=== PATIENT | female | born 1960 | race African-American/Black ===

== ENCOUNTER 2020-12-26 15:02 | Emergency (ER) | payer BC, SELFPAY ==
--- NOTE | ~2020-12-26 | XR_ITS ---
EXAMINATION: XR chest 2V DATE: 12/26/2020 15:41 INDICATION: Midsternal chest pain TECHNIQUE: PA and lateral views of the chest are obtained. COMPARISON: 04/05/2016 FINDINGS: The lungs are free of acute opacities. There is no pleural effusion or pneumothorax. The ca rdiomediastinal silhouette is normal. There is moderate thoracic spondylosis. There is chronic mild e levation of the right hemidiaphragm. IMPRESSION: 1. No acute cardiopulmonary abnormality. Reviewed, dictated and finalized at location A.
--- NOTE | 2020-12-26 15:03 | ECG_ITS ---
Measurements Intervals Talent Rate: 72 P: 122 KS: 147 QRS: 141 QRSD: 79 T: 155 QT: 362 QTc: 398 Interpretive Statements SINUS RHYTHM ARM LEADS REVERSED ATYPICAL ECG Electronically Signed On 12-27-2020 9:00:07 CDT by Waldo Gonzalez D.O.
[2020-12-26 15:28] VITALS: BP 128/89; PULSE 81; RESP 14; TEMP 36.8; O2SAT 99
[2020-12-26 15:31] LABS: Basophils Absolute Auto 0.1 K/mm3 (0.0-0.1); Basophils Percent Auto 0.8 % (0.2-1.2); Eosinophils Absolute Auto 0.1 K/mm3 (0-0.3); Eosinophils Percent Auto 1.4 % (0-4.4); Hematocrit 44.2 % (37.0-47.0); Hemoglobin 14.4 g/dL (12.0-15.0); Immature Granulocyte Absolute 0.02 K/mm3 (0.00-0.031); Immature Granulocyte Percent A 0.3 % (0-0.5); Lymphocytes Absolute Auto 1.42 K/mm3 (0.9-3.2); Mean Corpuscular HGB Conc 32.6 g/dl (32-36); Mean Corpuscular Hemoglobin 28.6 pg (26-34); Mean Corpuscular Volume 87.7 fl (80-100); Mean Platelet Volume 9.7 fl (7.4-10.4); Monocytes Absolute Auto 0.5 K/mm3 (0.1-0.6); Monocytes Percent Auto 7.1 % (2.6-8.5); Neutrophils Absolute Auto 4.4 K/mm3 (1.3-6.7); Neutrophils Percent Auto 68.4 % (45.5-73.1); Platelet Count Result 307 k/mm3 (150-375); Red Blood Count 5.04 M/mm3 (4.2-5.4); White Blood Count 6.5 K/mm3 (4.5-10.0)
[2020-12-26 15:40] LABS: Anion Gap 8 mmol/L (8-16); Blood Urea Nitrogen 19 mg/dL (7-17); Calcium 9.4 mg/dL (8.4-10.2); Carbon Dioxide 26 mmol/L (22-30); Chloride 105 mmol/L (98-107); Estimated CRCL calculation 56 ml/min; Estimated Glomerular Filt Rate > 60; Glucose 95 mg/dL (65-110); Potassium 4.1 mmol/L (3.4-5.0); Sodium 139 mmol/L (137-145)
[2020-12-26 15:42] LABS: Prothrombin Time 12.8 Seconds (11.1-14.7)
[2020-12-26 15:43] LABS: Partial Thromboplastin Time 23.7 SECONDS (22.3-36.8)
[2020-12-26 15:51] LABS: Troponin I < 0.012 ng/mL (0.000-0.034)
[2020-12-26 17:52] VITALS: BP 155/90; PULSE 76; RESP 16; TEMP 36.6; O2SAT 100
[2020-12-26 18:01] VITALS: PULSE 66
[2020-12-26] MEDS: ASPIRIN 81 MG CHEWABLE TABLET 324 MG PO (18:02)
[2020-12-26] MEDS: KETOROLAC 30 MG/ML VIAL (*BKC) IV PUSH (18:03)
--- NOTE | 2020-12-26 18:20 | ED.CHESTPAIN ---
HPI - Chest Pain General Chief Complaint: Chest Pain Stated Complaint: CHEST PAIN, SOB Time Seen by Provider: 12/26/20 17:50 History of Present Illness HPI narrative: Patient is a 60-year-old female who presents ER with right-sided chest pain. See anterior aspect. Ongoing over the last day. Worse with movement and deep breaths. Makes her feel slightly short of breath. No fevers or chills or sweats. No trauma. Has not tried any oral pain medication. No history of [place]. No lower extremity swelling, cough, hemoptysis. Related Data Allergies Allergy/AdvReac Type Severity Reaction Status Date / Time erythromycin base Allergy Severe YEAST Verified 12/26/20 17:59 INFECTION latex Allergy Severe SWELLING, Verified 12/26/20 17:59 REDDNESS tetracycline Allergy Severe YEAST Verified 12/26/20 17:59 INFECTION Review of Systems Review of Systems: All systems reviewed & are unremarkable except as noted in HPI and below Constitutional: Constitutional: Denies chills, Denies fever(s) and Denies weakness ENT: Denies nasal congestion and Denies sore throat Cardiovascular: Cardiovascular: Reports chest pain, Denies rapid heart rate and Denies radiating jaw, neck or arm pain Respiratory: Respiratory: Denies cough, Reports dyspnea and Denies wheezing Gastrointestinal: Gastrointestinal: Denies abdominal pain, Denies nausea and Denies vomiting Musculoskeletal: Musculoskeletal: Denies joint swelling and Denies muscle cramps PMFSH Past Medical History Medical History (Updated 12/26/20 @ 19:37 by Levi Kazt MD) Depression Surgical History Surgical History (Updated 12/26/20 @ 19:34 by Levi Katz MD) History of colonoscopy Social History Social History (Updated 12/26/20 @ 19:34 by Levi Katz MD) Smoking status: Never smoker Gender identity (if verbalized by the patient): Female Exam Narrative: GENERAL: Well-appearing, well-nourished, and in no acute distress. HEAD: Normocephalic, atraumatic. CHEST: Clear to auscultation. No respiratory distress. Tender palpation right anterior chest wall. HEART: Regular rate and rhythm. Normal peripheral pulses. ABDOMEN: Soft, nontender, nondistended. EXTREMITIES: Normal range of motion. No edema. SKIN: Warm, dry, no rash. NEURO: Alert and oriented x3. PSYCH: Normal mood and affect. Course Course Emergency Course: Unremarkable work-up. Discharge home. Vital Signs Vital signs: Vital Signs Temperature 98.3 F 12/26/20 15:28 Pulse Rate 81 12/26/20 15:28 Respiratory Rate 14 12/26/20 15:28 Blood Pressure 128/89 12/26/20 15:28 Pulse Oximetry 99 12/26/20 15:28 Temperature 98 F 12/26/20 17:52 Pulse Rate 63 12/26/20 19:03 Respiratory Rate 16 12/26/20 19:03 Blood Pressure 121/78 12/26/20 19:03 Pulse Oximetry 100 12/26/20 19:03 MDM - Chest Pain Lab Data Result diagrams: 12/26/20 15:18 12/26/20 15:17 Labs: Lab Results 12/26/20 12/26/20 12/26/20 Range/Units 15:17 15:17 15:18 WBC 6.5 (4.5-10.0) K/mm3 RBC 5.04 (4.2-5.4) M/mm3 Hgb 14.4 (12.0-15.0) g/dL Hct 44.2 (37.0-47.0) % MCV 87.7 (80-100) fl MCH 28.6 (26-34) pg MCHC 32.6 (32-36) g/dl RDW 14.0 (11.5-14.5) % Plt Count 307 (150-375) k/mm3 MPV 9.7 (7.4-10.4) fl Immature Gran % (Auto) 0.3 (0-0.5) % Neut % (Auto) 68.4 (45.5-73.1) % Lymph % (Auto) 22.0 (18.3-44.2) % [place] % (Auto) 7.1 (2.6-8.5) % Eos % (Auto) 1.4 (0-4.4) % Baso % (Auto) 0.8 (0.2-1.2) % Lymph # (Auto) 1.42 (0.9-3.2) K/mm3 [place] # (Auto) 0.5 (0.1-0.6) K/mm3 Eos # (Auto) 0.1 (0-0.3) K/mm3 Baso # (Auto) 0.1 (0.0-0.1) K/mm3 Abs Immat Gran (auto) 0.02 (0.00-0.031) K/mm3 Absolute Neuts (auto) 4.4 (1.3-6.7) K/mm3 Absolute Nucleated RBC 0.0 (0.0-0.012) K/mm3 Nucleated RBC % 0.0 (0.0-0.2) % PT 12.8 (11.1-14.7) Seconds INR 1.0 APTT 23.7
[2020-12-26 18:28] LABS: Troponin I < 0.012 ng/mL (0.000-0.034)
[2020-12-26 18:29] LABS: D Dimer 0.27 ug/mL (<0.48)
[2020-12-26 19:03] VITALS: BP 121/78; PULSE 63; RESP 16; O2SAT 100
== END 2020-12-26 19:46 | disposition home or self-care (01) ==
PROVIDERS: Emergency Provider Emergency Medicine; PCP Family Medicine
DX: R07.89 Other chest pain (principal)
CPT/HCPCS: 36415; 71046; 80048; 84484; 85025; 85380; 85610; 85730; 93005; 96374; 99284; A9270; J1885

== ENCOUNTER 2025-05-17 22:23 | Emergency (ER) | payer SELFPAY ==
--- NOTE | ~2025-05-17 | XR_ITS ---
XR toe 3rd RT min 2V 05/17/2025 23:12 Indication: Right third toe deformity Procedure: 3 views right third toe Comparison: No prior studies for comparison. Findings: There is a mildly displaced extra-articular fracture right third proximal phalanx. Mild soft tissue swelling. No other fracture identified. No foreign body. Impression: 1: Mildly displaced extra-articular fracture right third proximal phalanx. Reviewed, dictated and finalized at location [facility]. [employer] Impression: 1: Mildly displaced extra-articular fracture right third proximal phalanx.
--- OUTSIDE RECORDS SUMMARY | 2025-05-17 22:25 | XMS_ITS | Clinical Summary ---
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 Gender Identity Not on file Sexual Orientation Not on file Plan of Treatment Health Maintenance Due Date Last Done Comments Hepatitis C Virus (HCV) Screening 1960 Pap Smear 1981 Cervical Cancer Screening (CCS) 1990 HPV/Cotest 1990 Cologuard 2005 Colonoscopy 2005 Colorectal Cancer Screening 2005 Immunochemical Fecal Occult Blood 2005 Pneumococcal Immunization (50+ years) (1 of 1 - PCV) 2010 Zoster Immunization (1 of 2) 2010 Influenza Immunization (#1) 01/25/20250 09/2019, 02/25/2019, 06/11/2018, Additional history exists SARS-COV-2 Immunization ( season) 2025 Respiratory Syncytial Virus (RSV) Immunization (Adult) (1 - 1-dose 75+ series) 11/11/2035 DTaP/Tdap/Td Immunization Discontinued 04/05/2016, TdaP Immunization Completed 04/05/2016 Hepatitis B Immunization Aged Out No longer eligible based on patient's age to complete this topic Human Papillomavirus (HPV) Immunization Aged Out No longer eligible based on patient's age to complete this topic Meningococcal Immunization (ACWY) Aged Out No longer eligible based on patient's age to complete this topic Rotavirus Immunization Aged Out No lo nger eligible based on patient's age to complete this topic
--- OUTSIDE RECORDS SUMMARY | 2025-05-17 22:25 | XMS_ITS | Continuity of Care Document ---
Author Organization [place] - [facility] Address [address] [place] [address] Care Team Providers [facility] Name Role Phone JOSE JUAN ZEPEDA Primary Care Provider [phone] Assessment No assessment recorded. Plan of Treatment Reminders Order Date Submit Date Provider Last Modified By Organization Details Last Modified Time Details Appointments Physical/ Annual Wellness 2025 10:45A M Jose Juan Zepeda MD Not available Not available Not available Lab None recorded. Referral None recorded. Procedures None recorded. Surgeries None recorded. Imaging None recorded. Medication Orders atorvasta tin 10 mg tablet 2024 025 [id number], 2 [facility], [place], [place], [id number], 02/23/2025 09:23:29 Patient TargetsNo targets recorded. Patient InstructionsNo instructions recorded. Reason for Referral None Reported. Results Created Date Observation Date Name Description Value Unit Range Abnormal Flag Note LastModifiedBy Organization Detail LastModifiedTime 02/18/2002/19/2025 LIPID PANEL , STAND GABI cholesterol, total 166 mg/dL <200 normal Not Available [facility] [address] [place], [address], 02/19/2025 11:39:50 02/18/2002/19/2025 LIPID PANEL , STAND GABI HDL cholesterol 57 mg/dL > or = 50 normal Not Available [facility] [address] [place], [address], 02/19/2025 11:39:50 02/18/2002/19/2025 LIPID PANEL , STAND GABI triglyceride s 82 mg/dL <150 normal Not Available [facility] [address] [place] [address], [address], 02/19/2025 11:39:50 02/18/2002/19/2025 LIPID PANEL , STAND GABI LDL-choleste rol 92 mg/dL _(morales c) normal Refer ence range : <100 Franck able range <100 mg/dL for prima ry preve ntion ; <70 mg/dL for patie nts with CHD or diabe tic patie nts with > or = 2 CHD risk facto rs. LDL-C is now calcu lated using the Edwina n-Hop kins calcu eliseo n, which is a valid ated novel metho d provi ding emil r accur acy than the Fried kaylan equat ion in the estim ation of LDL-C . Edwina michel SS et al. JULIANA. 2013; 310(1 9): 2061- 2068 (http ://ed ucati on.Qu estCaarbon. com/f aq/FA Q164) Not Available [facility] [address] [place] [address], [address], 02/19/2025 11:39:50 02/18/2002/19/2025 LIPID PANEL , STAND GABI chol/HDLC ratio 2.9 (calc ) <5.0 normal Not Available [facility] [address] [place] [address], [address], 02/19/2025 11:39:50 02/18/2002/19/2025 LIPID PANEL , STAND GABI non HDL cholesterol 109 mg/dL _(morales c) <130 normal For patie nts with diabe adam plus 1 major ASCVD risk facto r, treat ing to a non-H DL-C goal of <100 mg/dL (LDL- C of <70 mg/dL ) is consi dered a thera peuti c optio n. Not Available [facility] [address] [place] [address], [address], 02/19/2025 11:39:50 02/18/2002/19/2025 CBC (INCL UDES DIFF/ PLT) white blood cell count 3.5 thous and/u L 3.8-10 .8 low Not Available [address], [address], 02/19/2025 11:39:51 02/18/2002/19/2025 CBC (INCL UDES DIFF/ PLT) red blood cell count 4.82 bryan on/uL 3.80-5 .10 normal Not Available [address], [address], 02/19/2025 11:39:51 02/18/2002/19/2025 CBC (INCL UDES DIFF/ PLT) hemoglobin 13.9 g/dL 11.7-1 5.5 normal Not Available [address], [address], 02/19/2025 11:39:51 02/18/2002/19/2025 CBC (INCL UDES DIFF/ PLT) hematocrit 42.6 % 35.0-4 5.0 normal Not Available [address], [address], 02/19/2025 11:39:51 02/18/2002/19/2025 CBC (INCL UDES DIFF/ PLT) MCV 88.4 fL 80.0-1 00.0 normal Not Available [address], [address], 02/19/2025 11:39:51 02/18/2002/19/2025 CBC (INCL UDES DIFF/ PLT) MCH 28.8 pg 27.0-3 3.0 normal Not Available [address], [address], 02/19/2025 11:39:51 02/18/2002/19/2025 CBC (INCL UDES DIFF/ PLT) MCHC 32.6 g/dL 32.0-3 6.0 normal For adult s, a sligh t decre ase in the calcu lated MCHC value (in the range of 30 to 32 g/dL) is most likel y not clini peri signi fican t; danikaev er, it shoul d be inter prete d with cauti on in corre lat n with other red cell jean eters and the patie nt's clini morales condi tion. Not Available [address], [address], 02/19/2025 11:39:51 02/18/2002/19/2025 CBC (INCL UDES DIFF/ PLT) RDW 13.0 % 11.0-1 5.0 normal Not Available [address], [address], 02/19/2025 11:39:51 02/18/2002/19/2025 CBC (INCL UDES DIFF/ PLT) platelet count 239 thous and/u L 140-40 0 normal Not Available [address], [address], 02/19/2025 11:39:51 02/18/2002/19/2025 CBC (INCL UDES DIFF/ PLT) MPV 10.5 fL 7.5-12 .5 normal Not Available [address], [address], 02/19/2025 11:39:51 02/18/2002/19/2025 CBC (INCL UDES DIFF/ PLT) absolute neutrophils 1579 cells /uL 1500-7 800 normal Not Available [address], [address], 02/19/2025 11:39:51 02/18/2002/19/2025 CBC (INCL UDES DIFF/ PLT) absolute lymphocytes 1323 cells /uL 850-39 00 normal Not Available [address], [address], 02/19/2025 11:39:51 02/18/2002/19/2025 CBC (INCL UDES DIFF/ PLT) absolute monocytes 431 cells /uL 200-95 0 normal Not Available [address], [address], 02/19/2025 11:39:51 02/18/2002/19/2025 CBC (INCL UDES DIFF/ PLT) absolute eosinophils 130 cells /uL 15-500 normal Not Available [address], [address], 02/19/2025 11:39:51 02/18/2002/19/2025 CBC (INCL UDES DIFF/ PLT) absolute basophils 39 cells /uL 0-200 normal Not Available [address], [address], 02/19/2025 11:39:51 02/18/2002/19/2025 CBC (INCL UDES DIFF/ PLT) neutrophils 45.1 % normal Not Available [address], [address], 02/19/2025 11:39:51 02/18/2002/19/2025 CBC (INCL UDES DIFF/ PLT) lymphocytes 37.8 % normal Not Available [address], [address], 02/19/2025 11:39:51 02/18/2002/19/2025 CBC (INCL UDES DIFF/ PLT) monocytes 12.3 % normal Not Available [address], [address], 02/19/2025 11:39:51 02/18/2002/19/2025 CBC (INCL UDES DIFF/ PLT) eosinophils 3.7 % normal Not Available [address], [address], 02/19/2025 11:39:51 02/18/2002/19/2025 CBC (INCL UDES DIFF/ PLT) basophils 1.1 % normal Not Available [address], [address], 02/19/2025 11:39:51 02/18/2002/19/2025 QUANT IFERO N(R)- TB GOLD PLUS, 1 TUBE quantiferon( R)-TB gold plus, 1 tube NEGATI VE negati ve normal Negat gisselle test resul t. M. justina michaudos is compl ex infec tion unlik brian. Not Available [address], [address], 02/19/2025 11:39:52 02/18/2002/19/2025 QUANT IFERO N(R)- TB GOLD PLUS, 1 TUBE nil 0.02 IU/mL normal Not Available [address], [address], 02/19/2025 11:39:52 02/18/2002/19/2025 QUANT IFERO N(R)- TB GOLD PLUS, 1 TUBE mitogen-nil 9.38 IU/mL normal Not Available [address], [address], 02/19/2025 11:39:52 02/18/20 25 02/19/2025 QUANT IFERO N(R)- TB GOLD PLUS, 1 TUBE TB1-nil 0.00 IU/mL normal Not Available [address], [address], 02/19/2025 11:39:52 02/18/20 25 02/19/2025 QUANT IFERO N(R)- TB GOLD PLUS, 1 TUBE TB2-nil <0.00 IU/mL normal The Nil tube value refle cts the backg round inter feron gamma immun e respo nse of the patie nt's blood sampl e. This value has been subtr acted from the patie nt's displ ayed TB and Mitog en resul ts. Lower than expec lor resul ts with the Mitog en tube preve nt false -nega tive Quant ifero n readi ngs by detec ting a patie nt with a poten tial immun e suppr essiv e condi tion and/o r subop timal pre-a nalyt ical speci men handl ing. The TB1 Antig en tube is coate d with the M. tuber culos is-sp ecifi c antig ens desig allison to elici t respo nses from TB antig en prime d CD4+ helpe r T-lym phocy adam. The TB2 Antig en tube is coate d with the M. tuber culos is-sp ecifi c antig ens desig allison to elici t respo nses from TB antig en prime d CD4+ helpe r and CD8+ cytot oxic T-lym phocy adam. For addit ional infor susan dubose e refer to https ://ed ati on.qu nena [employer]RS [employer]/f aq/FA Q204 (This link is being provi ded for infor bee castrejon/ brooke arzate l purpo ses only. ) Not Available [employer] [address] [place], [address], 02/19/2025 11:39:52 Result Notes None recorded. Problems Name Problem SNOMED Code Status Onset Date Resolution Date Notes Provider Name and Address Organization Details Recorded Time Mammograph y finding 530468574 Active Not Available [facility] 3 06:43:40 Osteoarthr itis of knee 573600265 Active Not Available [facility] 3 06:43:40 Mantoux: positive 518974093 Active Not Available [facility] 3 06:43:40 Knee pain Active Not Available [facility] 3 06:43:40 Localized osteoarthr osis 74007701 Active Not Available [facility] 3 06:43:40 Depressive disorder 18577816 Active Not Available [facility] 3 06:43:40 Beriberi 84656843 Active Not Available [facility] 3 06:43:40 Menorrhagi a 946236639 Active Not Available [facility] 3 06:43:40 Obesity 877291600 Active Not Available [facility] 3 06:43:40 Hyperlipid emia 85227079 Active Not Available [facility] 3 06:43:41 Uterine leiomyoma 70549391 Active Not Available [facility] 3 06:43:41 Obese 079733897 Active 2020 Not Available [facility] 3 06:43:40 Migraine 06826732 Active 2021 Not Available [facility] 3 06:43:40 Vitamin D deficiency 31243930 Active 2022 Jose Juan Zepeda MD [address], [place], [address] , [facility] 3 16:07:12 Leukopenia 01087921 Active 2023 Jose Juan Zepeda MD [address], [place], [address] , [facility] 5 09:23:02 Toothache 17343919 Active 2023 Jose Juan Zepeda MD [address], [place], [address] , [facility] 4 09:08:36 Increased stress 27829141 Active 2023 Jose Juan Zepeda MD [address], [place], [address] , [place] [facility] 4 17:13:39 Anxiety disorder 245049915 Active 2023 Jose Juan Zepeda MD [address], [place], [address] , [facility] 4 09:35:40 Pain of left thigh 7778175980682 05 Active 2023 Jose Juan Zepeda MD [address], [place], [address] , [facility] 4 09:41:26 Plantar wart of left foot [id number] 9102 Active 2023 Jose Juan Zepeda MD [address], [place], [address] , [facility] 4 09:44:18 Vitamin B12 deficiency (non anemic) 82700846 Active 2024 Jose Juan Zepeda MD [address], [place], [address] , [facility] 5 09:36:19 Complicati on due to vaccinatio n 72424417 Active 2024 Jose Juan Zepeda MD [address], [place], [address] , [facility] 5 09:02:02 Fatigue 15117389 Active 2024 Jose Juan Zepeda MD [address], [place], [address] , [facility] 5 09:19:04 Nasal congestion 50581020 Active 2024 Jose Juan Zepeda MD [address], [place], [address] , [facility] 5 09:19:46 Problem Notes None recorded. Procedures Surgical History Date Name Laterality Status Provider Name and Address Organization Details Recorded Time 013 Knee arthroscopy/surgery completed Not Available [facility] 07/25/2022 06:40:52 013 Gastrointestinal Surgery completed Not Available [facility] 07/25/2022 06:40:52 012 colonoscopy completed Not Available [facility] 07/25/2022 06:40:52 983 Orthopedic Surgery completed Not Available [facility] 07/25/2022 06:40:52 Imaging Results None recorded. Procedure Notes None recorded. Medical Equipment None Reported. Allergies Allergen ID Allergen Name Allergen Category Reaction Reaction Severity Criticality Documentation Date Start Date Code Code System Note Provider Name and Address Organization Details Recorded Time 84024 tetracycl ine medicatio n Not available Not available Not available 07/25/2022 55803 RxNorm yeast infec tions Not Available [facility] 3 06:49:02 26034 latex environme nt,medica tion Not available Not available Not available 07/25/2022 61746 91 RxNorm Not Available [facility] 3 06:49:02 90082 erythromy rainer medicatio n Not available Not available Not available 07/25/2022 4053 RxNorm yeast infec tions Not Available [facility] 3 06:49:02 Medications Name Sig Start Date Stop Date Status Note LastModified by Organization Details LastModified Time multivitam in tablet Take 1 tablet every day by oral route. 2013 active Not Available Not Available Not Avai lable naproxen 375 mg tablet 08/16 completed 14 days Not Available Not Available Not Available atorvastat in 10 mg tablet TAKE 1 TABLET BY MOUTH EVERY DAY AT BEDTIME active Not Available Not Available No t Available benzonatat e 200 mg capsule 02/02 completed Not Available Not Available Not Available meloxicam 15 mg tablet Take 1 tablet every day by oral route for 30 days. 04/13 completed Not Available Not Available Not Available phentermin e 15 mg capsule TAKE 1 CAPSULE BY MOUTH EVERY DAY BEFORE BREAKFAST 05/13 completed Not Available Not Available Not Available penicillin V potassium 500 mg tablet TAKE 1 TABLET BY MOUTH THREE TIMES DAILY FOR 7 DAYS DIRECTED 09/03 completed Not Available Not Available Not Available phentermin e 37.5 mg tablet TAKE 1/2 TABLET BY MOUTH EVERY DAY 11/08 completed Not Available Not Available Not Available tramadol 50 mg tablet 04/13 completed made dizzy Not Available Not Available Not Available alprazolam 0.5 mg tablet TAKE 1 TABLET BY MOUTH THE NIGHT BEFORE APPOINTME NT THEN 1 TABLET 1 HOUR BEFORE APPOINTME NT active Not Available Not Available No t Available thiamine HCl (vitamin B1) 100 mg/mL injection solution Take 1 mL by injection route as directed for 1 day. active Not Available Not Available No t Available hydrocodon e 7.5 mg-acetami nophen 325 mg tablet 04/13 completed Not Available Not Available Not Available buspirone 10 mg tablet TAKE 1 TABLET BY MOUTH TWICE DAILY NEEDED active Not Available Not Available No t Available ergocalcif marty (vitamin D2) 1,250 mcg (50,000 unit) capsule TAKE 1 CAPSULE BY MOUTH EVERY WEEK DIRECTED active Not Available Not Available No t Available lorazepam 1 mg tablet TAKE 1 TABLET BY MOUTH THE NIGHT BEFORE APPOINTME NT THEN 1 TABLET 1 HOUR BEFORE APPOINTME NT 09/03 completed Not Available Not Available Not Available methylpred nisolone 4 mg tablets in a dose pack FOLLOW PACKAGE DIRECTION S 09/03 completed Not Available Not Available Not Available fluticason e propionate 50 mcg/actuat ion nasal spray,susp ension [place] 1 spray every day by intranasa l route. 10/05 completed Not Available Not Available Not Available naproxen 500 mg tablet 04/13 completed Not Available Not Available Not Available amoxicilli n 875 mg-potassi um clavulanat e 125 mg tablet 02/02 completed Not Available Not Available Not Available escitalopr am 10 mg tablet TAKE 1 TABLET BY MOUTH EVERY DAY IN THE MORNING active Not Available Not Available No t Available bupropion HCl XL 300 mg 24 hr tablet, extended release TAKE ONE TABLET BY MOUTH DAILY active Not Available Not Available No t Available bupropion HCl XL 150 mg 24 hr tablet, extended release TAKE 1 TABLET BY MOUTH EVERY DAY. Patient may increase the dosage to 300 mg daily after 4 days if she feels the medicatio n is not addressin g her depressio n adequatel y. active Not Available Not Available No t Available escitalopr am 5 mg tablet TAKE 1 TABLET BY MOUTH EVERY DAY DIRECTED 05/13 completed Not Available Not Available Not Available hydrocodon e 7.5 mg-acetami nophen 325 mg/15 mL oral solution active Not Available Not Available Not Available Vitamin D3 1 po qd 10/05 completed Not Available Not Available Not Available Vitamin B1 1 po qd 10/05 completed Not Available Not Available Not Available Calcium 500 + D (D3) 1 po qd 10/05 completed Not Available Not Available Not Available GaviLyte-G 236 gram-22.74 gram-6.74 gram-5.86 gram oral solution MIX AND DRINK BY MOUTH DIRECTED active Not Available Not Available No t Available vitamin B12 1,000 mcg-folic acid [address] 1 tablet every day by sublingua l route. 10/05 completed Not Available Not Available Not Available biotin 1 mg capsule Take 1 capsule every day by oral route. 10/05 completed Not Available Not Available Not Available Fluarix Quad 7934-6274 (PF) 60 mcg (15 mcg x 4)/0.5 mL IM syringe INJECT 0.5 ML INTRAMUSC ULARLY DIRECTED. active Not Available Not Available No t Available Flucelvax Quad 60 mcg (15 mcg x 4)/0.5 mL IM suspension active Not Available Not Available N ot Available Vitals Date Recorded Body height Body temperature Oxygen saturation Heart rate Systolic And Diastolic Provider Name and Address Organization Details Last Updated DateTime 5 166.37 cm 97.2 [degF] 98 % 65 /min 110/70 mm[Hg] Zari CasillasRN [place] [facility] 5 09:12:51 Social History Question Answer Notes LastModified by Organizat ion Details LastModified Time Tobacco Smoking Status Never Smoker Not Available [facility] 07/25/2022 06:40:34 What Is Your Level Of Caffeine Consumption? Heavy [id number] Information not available 07/25/2022 How Much Tobacco Do You Chew? None [id number] Information not available 07/25/2022 In The 14 Days Before Symptom Onset, Have You Had Close Contact With A Laboratory-confirm ed COVID-19 While That Case Was Ill? No [id number] 026 Information not available 07/25/2022 In The 14 Days Before Symptom Onset, Have You Had Close Contact With A Person Who Is Under Investigation For COVID-19 While That Person Was Ill? No [id number].[id number] 026 Information not available 07/25/2022 What Type Of Diet Are You Following? REGULAR [id number].[id number] 026 Information not available 07/25/2022 Which Illicit Or Recreational Drugs Have You Used? NONE MIGRATION.[id number] 026 Information not available 07/25/2022 At What Age Did You Start Smoking Tobacco? 22 [id number].[id number] 026 Information not available 07/25/2022 Sex: Unknown Functional Status Question Answer Note LastModified by Organizat ion Details LastModified Time What is your level of alcohol consumption? 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 Never used electronic cigarettes MIGRATION.[id number] 026 Information not available 07/25/2022 Mental Status None recorded. Family History Relationship Description Onset Age of this Age Resolved Age Notes LastModified by Organization Details LastModified Time Mother Hypertensive disorder MIGRATION.280 [id number] Not available 07/25/2022 06:40:52 Mother Neoplasm of ovary MIGRATION.482 [id number] Not available 07/25/2022 06:40:52 Mother Disorder of thyroid gland MIGRATION.419 [id number] Not available 07/25/2022 06:40:52 Unspecified Relation Diabetes mellitus MIGRATION.306 [id number] Not available 07/25/2022 06:40:52 Unspecified Relation Paget's disease-mult iple sites MIGRATION.965 [id number] Not available 07/25/2022 06:40:52 Sister Malignant neoplasm of breast MIGRATION.423 [id number] Not available 07/25/2022 06:40:52 Medical History Condition Response HIGH CHOLESTEROL / HYPERLIPIDEMIA Y BRONCHITIS Y HAVE YOU BEEN HOSPITALIZED OR SEEN IN [facility] IN THE PAST YEAR ? Y Gynecological History Statement/Question Response Date of Last Mammogram 10/18/2020 Obstetrics History GPAL:G 0 P 0 0 0 0 Immunizations Vaccine Type Date Status Note Provider [facility] e and Address Organization Details Recorded Time RSV, recombinant, protein subunit RSVpreF, adjuvant reconstituted, 0.5 mL, PF 3 completed Elizabeth Araujo RN null, [facility] [employer] 05/02/2023 17:51:58 COVID-19, mRNA, LNP-S, PF, philip-sucrose, 30 mcg/0.3 mL 3 completed Elizabeth Araujo RN null, [facility] [employer] 05/02/2023 17:52:24 Influenza, adjuvanted, quadrivalent, PF 3 completed Elizabeth Araujo RN null, [facility] [employer] 05/02/2023 17:53:23 COVID-19, mRNA, LNP-S, PF, 30 mcg/0.3 mL dose 2 completed Not Available [facility] 07/25/2022 06:48:46 Influenza, split virus, quadrivalent, preservative 9 completed Not Available [facility] 07/25/2022 06:48:46 SARS-COV-2 (COVID-19) vaccine, UNSPECIFIED 1 completed Not Available [facility] 07/25/2022 06:48:47 SARS-COV-2 (COVID-19) vaccine, UNSPECIFIED 1 completed Not Available [facility] 07/25/2022 06:48:47 Influenza, split virus, trivalent, preservative 4 completed Not Available [facility] 07/25/2022 06:48:47 Td (adult) 4 completed Not Available [facility] 07/25/2022 06:48:47 Influenza, split virus, quadrivalent, PF 6 completed Not Available [facility] 07/25/2022 06:48:47 Tdap 6 completed Not Available [facility] 07/25/2022 06:48:47 Tdap 3 completed Elizabeth Araujo RN null, [facility] [employer] 11/09/2022 16:07:14 Past Encounters Encounter ID Performer Location Encounter Start Date Encounter Closed Date Diagnosis/Indication Diagnosis SNOMED-CT Code Diagnosis ICD10 Code Diagnosis IMO Codes Diagnosis Note [id number] Jose Juan Zepeda MD [facility] [address] [address] 02/23/2025 08:43:24 02/23/2025 09:20:48 Complication due to vaccination 35194361 T88.1XXA 3360336 Pt declined for any Rx med. OTC symptomati c treatment and good liquid intake explained in detail. Fatigue 13105181 R53.83 1955294 Nasal congestion 5115806 0 R09.81 34904 Leukopenia 75058608 D72. 819 [id number] Pt declined for Hemat referral. Hyperlipidemia 70529051 E78.5 Health Concerns Section Related Observation LastModified by Organization Detai ls LastModified Time None Recorded Concern Status LastModified by Organization Details LastModified Time None Recorded Payers Encounter Date Sequence Insurance Name Policy Number Policy Blackwell Covered Member ID Blackwell Member ID Guarantor Name 02/23/2025 1 [employer] [id number] Estefani Hunt [id number] Estefani Hunt Notes Date Note Type Note Provider Name and Address Organization Details Recorded Time 02/23/2025 text/html ACV: C/o feeling fatigue, tired, congestion with clear drainage for last 6 days. Pt got 4 vaccines together onn 02/17/25 and from next day, she started with these symptoms. Since yesterday, she is feeling better now. No other concern. Jose Juan Zepeda MD [address] [place] [address], [facility] [address], [place], [address], [facility] 02/23/2025 09:24:25 OBGyn Episode No OBEpisode recorded.
--- OUTSIDE RECORDS SUMMARY | 2025-05-17 22:26 | XMS_ITS | Clinical Summary ---
Author Organization [facility] Address [address] [place] [address] Care Team Providers Care Merchandise Distributor Name Role Phone Julia Gastelum MD Primary Care Provider Source Comments [facility],non-owned Affiliates and Associated Physician Practices is amultiple site organization consisting of ambulatory clinics and hospital sitesin [place], [place], [place] and [place]. This disclosure is being madepursuant to the Care Everywhere program and may not contain all information available regarding this patient. Last updated 18.[facility] Allergies Active Allergy Reactions Criticality Noted Date Comments Erythromycin Other High 12/05/2012 Yeast infection Latex Swelling High 12/05/2012 Can eat avacados and bananas, can wear elastic in underwear. Blowing balloons makec mouth itch. Tetracycline Other High 12/05/2012 Yeast infection Medications * Be aware that medications may not be up to date on this document. Alwaysverify current medications with the patient. buPROPion XL 24hr (WELLBUTRIN XL) 300 MG tablet Take 300 mg by mouth every morning. Active vitamin B-12 (CYANOCOBALAMIN ) 1000 MCG tabletIndicatio ns:Morbid obesity (HCC) Take 1,000 mcg by mouth once daily. Active vitamin D, cholecalciferol , 1000 UNIT tabletIndicatio ns:Morbid obesity (HCC) Take by mouth once daily. Active PGONT-JZSOORS-L INERALS (TROPICAL OASIS MULTI VITAMIN) SOLN Take 30 mL by mouth 2 times daily. Active Scar Treatment Products (MEDERMA SPF 30) CREAIndications :Surgery follow-up examination,Bar iatric surgery status,Obesity by Apply externally route. 20 g 0 4 Active phentermine (IONAMINE) 15 MG capsule Take 1 capsule by mouth once daily 30 capsule 8 Active phentermine (IONAMINE) 15 MG capsule Take 1 capsule by mouth daily before breakfast 30 capsule 8 Active Active Problems Problem Noted Date Diagnosed Date Depression 12/05/2012 GERD (gastroesophageal reflux disease) 3 Dyslipidemia 12/05/2012 Immunizations Immunization Administration Dates Next Due INFLUENZA VACCINE, QUADR. (F LUZONE; FLULAVAL; FLUARIX; AFLURIA QUADRIVALENT; 6MO+), 0.5 ML (IIV4) 02/20/2021,02/29/2020 PNEUMOCOCCAL PPSV23 05/19/2013 Family History Medical History Relation Name Comments Hypertension Brother Heart Failure Maternal Uncle Cancer Mother Hypertension Mother Diabetes Paternal Uncle Cancer Sister Hypertension Sister Relation Name Status Comments Brother Maternal Uncle Mother Paternal Uncle Sister Social History Tobacco Use Types Packs/Day Years Used Date Smoking Tobacco: Former Cigarettes 0 Q uit: 05/27/1983 Smokeless Tobacco: Never Alcohol Use Standard Drinks/Week Comments No 0 (1 standard drink = 0.6 oz pur e alcohol) Comments No Sex and Gender Information Value Date Recorded Sex Assigned at Not on file Legal Sex Female 6:11 AM [employer] Gender Identity Not on file Sexual Orientation Not on file Last Filed Vital Signs Vital Sign Reading Time Taken Comments Blood Pressure 146/88 10/17/2017 10:21 AM CDT Pulse 62 10/17/2017 10:21 AM CDT Temperature 36.7 C (98 F) 05/25/2013 1:28 PM K[employer] CHIPPER Respiratory Rate 20 05/19/2013 4:35 PM [employer] CHIPPER Oxygen Saturation 100% 11/16/2013 1:26 PM CDT Inhaled Oxygen Concentration - - Weight 91.6 kg (202 lb) 10/17/2017 10:21 AM CDT Height 165.1 cm (5' 5) 10/17/2017 10:21 AM CDT Body Mass Index 33.61 10/17/2017 10:21 AM CDT Plan of Treatment Health Maintenance Due Date Last Done Comments LELO (AGES 45-75) - COLON CA SCREENING 1960 COLON MONITORING 1960 COLONOSCOPY - COLON CA SCREENING 1960 CT COLONOGRAPHY - COLON CA SCREENING 1960 Colorectal Cancer Screening 1960 FIT - COLON CA SCREENING 1960 FLEX SIG - COLON CA SCREENING 1960 LIPID TESTING 1960 MAMMOGRAM 1960 HIV SCREENING 11/11/1975 HEPATITIS C SCREENING 11/06/1978 DTAP/TDAP/TD VACCINES (1 - Tdap) 11/11/1979 ZOSTER VACCINE (1 of 2) 2010 PNEUMOCOCCAL VACCINE 50+ (2 of 2 - PCV) 05/19/2014 05/19/2013 DEPRESSION SCREENING 05/27/2024 COVID-19 VACCINE (3 - 2024- season) 2025 07/13/2020, 06/22/2020 INFLUENZA VACCINE (#1) 2025 , 02/29/2020, 02/25/2019, Additional history exists Respiratory Syncytial Virus (RSV) Vaccine Pt: or over 60 yrs (1 - 1-dose 75+ series) 11/11/2035 HEPATITIS B VACCINE Aged Out No longe r eligible based on patient's age to complete this topic HIB VACCINE Aged Out No longer eligi ble based on patient's age to complete this topic HPV VACCINE Aged Out No longer eligi ble based on patient's age to complete this topic MENINGOCOCCAL (Group B) VACCINE SHARED DECISION-MAKING Aged Out No longer eligible based on patient's age to complete this topic MENINGOCOCCAL GROUPS A/C/Y/W VACCINE Aged Out No longer eligible based on patient's age to complete this topic Insurance [employer] Advance Directives * FULL RESUSCITATION (Latest Code Status on File) Date Activated Date Inactivated Comments 05/18/2013 3:16 PM 05/19/2013 6:05 PM Care Teams Merchandise Distributor Relationship Specialty Start Date End Date Julia Gastelum MD [address] [place] [address] [phone] PCP - General Family Medicine 12/09/12
--- OUTSIDE RECORDS SUMMARY | 2025-05-17 22:26 | XMS_ITS | Continuity of Care Document ---
Author Organization [place] - [facility] [employer] [facility], [facility] General Surgery Address [address] [facility] [place] [address] Care Team Providers Care Photo Finisher Name Role Phone JOSE JUAN ZEPEDA Primary Care Provider Assessment No assessment recorded. Plan of Treatment Reminders Order Date Submit Date Provider Last Modified By Organization Details Last Modified Time Details Appointments Physical/ Annual Wellness 30 2025 10:45A M Jose Juan Zepeda MD Not available Not available Not available Lab None recorded. Referral None recorded. Procedures colonosco py screening (PROC) 2024 025 [facility] (Pre-Screen), [address] [facility], [place], [address], 03/15/2025 14:40:01 Surgeries None recorded. Imaging None recorded. Medication Orders Golytely 236 gram-22.7 4 gram-6.74 gram-5.86 gram oral solution 2024 025 [id number], [address] [facility], [place], [place], [id number], 03/03/2025 11:19:07 Patient TargetsNo targets recorded. Patient Instructions Encounter Date Encounter Id Patient Instructions Last Modified By Organization Details Last Modified Time 03/03/2025 [id number] GOLYTELY [email or web address] Not available 12/2024 11:17:52 PT NEEDS A SCREENING COLON . R/O POLYP . RECOMMEND A COLONOSOPY RISKS BENEFITS AND COMPLICATIONS WERE EXPLAINED TO PT . ( BLEEDING , PERFORATION , INFECTION , ) PT VERBALIZES UNDERSTANDING AND IS WILLING TO PROCEDE . [email or web address] Not available 03/03/2025 11:18:03 Reason for Referral None Reported. Results Created Date Observation Date Name Description Value Unit Range Abnormal Flag Note LastModifiedBy Organization Detail LastModifiedTime 02/18/2002/19/2025 LIPID PANEL , STAND GABI cholesterol, total 166 mg/dL <200 normal Not Available [facility] [address] [place], [address], 02/19/2025 11:39:50 02/18/2002/19/2025 LIPID PANEL , STAND GABI HDL cholesterol 57 mg/dL > or = 50 normal Not Available [facility] [address] [place], [address], 02/19/2025 11:39:50 02/18/2002/19/2025 LIPID PANEL , STAND GABI triglyceride s 82 mg/dL <150 normal Not Available [facility] [address] [place], [address], 02/19/2025 11:39:50 02/18/2002/19/2025 LIPID PANEL , STAND [...] is a valid ated novel metho d granti marco babcockte r accur acy than the Fried kaylan equat ion in the estim ation of LDL-C . Edwina michel SS et al. JULIANA. 2013; 310(1 9): 2061- 2068 (http ://ed ameeati on.Qu Dionicio garcia tics. com/f aq/FA Q164) Not Available [facility] [address] [place], [address], 02/19/2025 11:39:50 02/18/2002/19/2025 LIPID PANEL , STAND GABI chol/HDLC ratio 2.9 (calc ) <5.0 normal Not Available [address], [address], 02/19/2025 11:39:50 02/18/2002/19/2025 LIPID PANEL , STAND GABI non HDL cholesterol 109 mg/dL _(morales c) <130 normal For patie nts with diabe adam plus 1 major ASCVD risk facto r, treat ing to a non-H DL-C goal of <100 mg/dL (LDL- C of <70 mg/dL ) is consi dered a thera lynn c optio n. Not Available [address], [address], 02/19/2025 11:39:50 02/18/2002/19/2025 CBC (INCL UDES DIFF/ PLT) white blood cell count 3.5 thous and/u L 3.8-10 .8 low Not Available [address], [address], 02/19/2025 11:39:51 02/18/2002/19/2025 CBC (INCL UDES DIFF/ PLT) red blood cell count 4.82 bryan on/uL 3.80-5 .10 normal Not Available [address], [address], 02/19/2025 11:39:51 02/18/2002/19/2025 CBC (INCL UDES DIFF/ PLT) hemoglobin 13.9 g/dL 11.7-1 5.5 normal Not Available [address], [address], 02/19/2025 11:39:51 02/18/2002/19/2025 CBC (INCL UDES DIFF/ PLT) hematocrit 42.6 % 35.0-4 5.0 normal Not Available [address], [address], 02/19/2025 11:39:51 02/18/2002/19/2025 CBC (INCL UDES DIFF/ PLT) MCV 88.4 fL 80.0-1 00.0 normal Not Available [address], [address], 02/19/2025 11:39:51 02/18/2002/19/2025 CBC (INCL UDES DIFF/ PLT) MCH 28.8 pg 27.0-3 3.0 normal Not Available [facility] [address], [address], 02/19/2025 11:39:51 02/18/2002/19/2025 CBC (INCL UDES DIFF/ PLT) MCHC 32.6 g/dL 32.0-3 6.0 normal For adult s, a sligh t decre ase in the calcu lated MCHC value (in the range of 30 to 32 g/dL) is most likel y not clini peri signi fican t; [facility], it shoul d be inter prete d with cauti on in [facility] n with other red cell jean eters and the patie nt's clini morales condi tion. Not Available [address], [address], 02/19/2025 11:39:51 02/18/2002/19/2025 CBC (INCL UDES DIFF/ PLT) RDW 13.0 % 11.0-1 5.0 normal Not Available [facility] [address], [address], 02/19/2025 11:39:51 02/18/2002/19/2025 CBC (INCL UDES DIFF/ PLT) platelet count 239 thous and/u L 140-40 0 normal Not Available [facility] [address], [address], 02/19/2025 11:39:51 02/18/20 25 02/19/2025 CBC (INCL UDES DIFF/ PLT) MPV 10.5 fL 7.5-12 .5 normal Not Available [address], [address], 02/19/2025 11:39:51 02/18/20 25 02/19/2025 CBC (INCL UDES DIFF/ PLT) absolute neutrophils 1579 cells /uL 1500-7 800 normal Not Available [address], [address], 02/19/2025 11:39:51 02/18/2002/19/2025 CBC (INCL UDES DIFF/ PLT) absolute lymphocytes 1323 cells /uL 850-39 00 normal Not Available [address], [address], 02/19/2025 11:39:51 02/18/20 25 02/19/2025 CBC (INCL UDES DIFF/ PLT) absolute monocytes 431 cells /uL 200-95 0 normal Not Available [address], [address], 02/19/2025 11:39:51 02/18/2002/19/2025 CBC (INCL UDES DIFF/ PLT) absolute eosinophils 130 cells /uL 15-500 normal Not Available [address], [address], 02/19/2025 11:39:51 02/18/2002/19/2025 CBC (INCL UDES DIFF/ PLT) absolute basophils 39 cells /uL 0-200 normal Not Available [address], [address], 02/19/2025 11:39:51 02/18/20 25 02/19/2025 CBC (INCL UDES DIFF/ PLT) neutrophils 45.1 % normal Not Available [address], [address], 02/19/2025 11:39:51 02/18/2002/19/2025 CBC (INCL UDES DIFF/ PLT) lymphocytes 37.8 % normal Not Available [address], [address], 02/19/2025 11:39:51 02/18/2002/19/2025 CBC (INCL UDES DIFF/ PLT) monocytes 12.3 % normal Not Available [address], [address], 02/19/2025 11:39:51 02/18/2002/19/2025 CBC (INCL UDES DIFF/ PLT) eosinophils 3.7 % normal Not Available [address], [address], 02/19/2025 11:39:51 02/18/2002/19/2025 CBC (INCL UDES DIFF/ PLT) basophils 1.1 % normal Not Available [address], [address], 02/19/2025 11:39:51 02/18/2002/19/2025 QUANT IFERO N(R)- TB GOLD PLUS, 1 TUBE quantiferon( R)-TB gold plus, 1 tube NEGATI VE negati ve normal Negat gisselle test resul t. M. tuber culos is compl ex infec tion unlik brian. Not Available [address], [address], 02/19/2025 11:39:52 02/18/2002/19/2025 QUANT IFERO N(R)- TB GOLD PLUS, 1 TUBE nil 0.02 IU/mL normal Not Available [address], [address], 02/19/2025 11:39:52 02/18/2002/19/2025 QUANT IFERO N(R)- TB GOLD PLUS, 1 TUBE mitogen-nil 9.38 IU/mL normal Not Available [facility] [address] [place], [address], 02/19/2025 11:39:52 02/18/20 25 02/19/2025 QUANT IFERO N(R)- TB GOLD PLUS, 1 TUBE TB1-nil 0.00 IU/mL normal Not Available [facility] [address] [place], [address], 02/19/2025 11:39:52 02/18/2002/19/2025 QUANT IFERO N(R)- TB [...] susan dubose e refer to https ://ed steph on.qu estdi [employer]AT [employer]. com/f aq/FA Q204 (This link is being provi ded for infor bee castrejon/ educa huey l purpo ses only. ) Not Available [employer] [facility] [address] , [place], [address], 02/19/2025 11:39:52 Result Notes None recorded. Problems Name Problem SNOMED Code Status Onset Date Resolution Date Notes Provider Name and Address Organization Details Recorded Time Mammograph y finding 421672002 Active Not Available [facility] 3 06:43:40 Osteoarthr itis of knee 054744986 Active Not Available [facility] 3 06:43:40 [place]oux: positive 123448630 Active Not Available [facility] 3 06:43:40 Knee pain Active Not Available [facility] 3 06:43:40 Localized osteoarthr osis 28742403 Active Not Available [facility] 3 06:43:40 Depressive disorder 89590501 Active Not Available [facility] 3 06:43:40 Beriberi 79762333 Active Not Available [facility] 3 06:43:40 Menorrhagi a 144982715 Active Not Available [facility] 3 06:43:40 Obesity 151888851 Active Not Available [facility] 3 06:43:40 Hyperlipid emia 82337457 Active Not Available [facility] 3 06:43:41 Uterine leiomyoma 28118111 Active Not Available [facility] 3 06:43:41 Obese 768975529 Active 2020 Not Available [facility] 3 06:43:40 Migraine 31133086 Active 2021 Not Available [facility] 3 06:43:40 Vitamin D deficiency 96528989 Active 2022 Jose Juan Zepeda MD [address], [place], [address] , [facility] [employer] [facility] 3 16:07:12 Leukopenia 23256124 Active 2023 Jose Juan Zepeda MD [address], [place], [address] , [facility] [place] [facility] 5 09:23:02 Toothache 38096017 Active 2023 Jose Juan Zepeda MD [address], [place], [address] , [facility] 4 09:08:36 Increased stress 51307259 Active 2023 Jose Juan Zepeda MD [address], [place], [address] , [facility] 4 17:13:39 Anxiety disorder 820341492 Active 2023 Jose Juan Zepeda MD [address], [place], [address] , [facility] 4 09:35:40 Pain of left thigh 7621056273347 05 Active 2023 Jose Juan Zepeda MD [address], [place], [address] , [facility] 4 09:41:26 Plantar wart of left foot 6320316829143 9102 Active 2023 Jose Juan Zepeda MD [address], [place], [address] , [facility] 4 09:44:18 Vitamin B12 deficiency (non anemic) 81270544 Active 2024 Jose Juan Zepeda MD [address], [place], [address] , [facility] 5 09:36:19 Complicati on due to vaccinatio n 88288140 Active 2024 Jose Juan Zepeda MD [address], [place], [address] , [facility] 5 09:02:02 Fatigue 02476999 Active 2024 Jose Juan Zepeda MD [address], [place], [address] , [facility] 5 09:19:04 Nasal congestion 26599679 Active 2024 Jose Juan Zepeda MD [address], [place], [address] , [place] [facility] [employer] [facility] 5 09:19:46 Problem Notes Documentation Provider Name and Address Organization Details Recorded Time Configuration Management Specialist Consult N ote : [facility] [address] [facility] [address], [facility] [address]YKYRDZ, Tracey A (id #[id number], : 1960) [facility] [employer] [facility] [address] [facility] [address] [place] [address] Encounter Summary - Progress Note Date Printed: 03/03/2025 Documents sent via fax will include the followingmessage: This fax may contain sensitive and confidential personal health information that is being sent for the sole use of the intended recipient. Unintended recipients are directed to securely destroy any materials received. You are hereby notified that the unauthorized disclosure or other unlawful use of this fax or any personal health information is prohibited. To the extent patient information contained in this fax is subject to 42 CFR Part 2, this regulation prohibits unauthorized disclosure of these records. If you received this fax in error, please visit [email or web address] to notify the sender and confirm that the information will be destroyed. If you do not have internet access, please call to notify the sender and confirm that the information will be destroyed. Thank you for your attention and cooperation. [ID:[id number]] Patient Estefani Hunt (64yo, F) #[id number] Patient Demographics: Address [address] [place] [address] Work Phone Encounter Notes: Encounter Reason/Date Colonoscopy Screen Eval 03/03/2025 - 10:00AM - [facility] General Surgery History of Present IllnessPT WAS SEEN IN THE OFFICE TODAY FOR COLON SCREENING . PT DENIES ABD PAIN /N/V/D/BLEEDING /WT LOSS Review of SystemsROS as noted in the HPI Vitals Ht: 5 ft 5.5 in (166.37 cm) Wt: 229 lbs (103.87 kg) BMI: 37.5 BP: 132/74 Pulse: 65 bpm O2Sat: 97% Results/Interpretations Physical ExamConstitutional:General Appearance: healthy-appearing, well-nourished, and well-developed. Level of Distress: NAD. Ambulation: ambulating normally. Psychiatric:Insight: good judgement. Mental Status: normal mood and affect and active and alert. Orientation: to time, place, and person. Memory: recent memory normal and remote memory normal. Head:Head: normocephalic and atraumatic. Eyes:Lids and Conjunctivae: no discharge or pallor and non-injected. Pupils: PERRLA. Corneas: grossly intact. Fundoscopic: normal vessels and optic discs, no exudates or hemorrhages, and grossly normal except where noted. EOM: EOMI. Lens: clear. Sclerae: non-icteric. Vision: peripheral vision grossly intact and acuity grossly intact. ENMT:Ears: no lesions on external ear, EACs clear, TMs clear, and TM mobility normal. Hearing: no hearing loss and Rinne AC>BC. Nose: no polyp, lesions on external nose, septal deviation, sinus tenderness, or nasal discharge and nares patent and nasal passages clear. Lips, Teeth, and Gums: no mouth or lip ulcers or bleeding gums and normal dentition. Oropharynx: no erythema or exudates and moist mucous membranes and tonsils not enlarged. Neck:Neck: supple, FROM, trachea midline, and no masses. Lymph Nodes: no cervical LAD, supraclavicular LAD, axillary LAD, or inguinal LAD. Thyroid: no enlargement or nodules and non-tender. Lungs:Respiratory effort: no dyspnea. Percussion: no dullness, flatness, or hyperresonance. Auscultation: no wheezing, rales/crackles, or rhonchi and breath sounds normal, good air movement, and CTA except as noted. Chest Deformity: no pectus carinatum or excavatum; no thoracic deformity, left sternal bulge, or barrel chest; and normal-spaced nipples. Cardiovascular:Apical Impulse: not displaced. Heart Auscultation: normal S1 and S2; no murmurs, rubs, or gallops; and RRR. Neck vessels: no carotid bruits. Pulses including femoral / pedal: normal throughout. Abdomen:Bowel Sounds: normal. Inspection and Palpation: no tenderness, guarding, masses, rebound tenderness, or CVA tenderness and soft and non-distended. Liver: non-tender and no hepatomegaly. Spleen: non-tender and no splenomegaly. Hernia: none palpable. Musculoskeletal::Motor Strength and Tone: normal tone and motor strength. Joints, Bones, and Muscles: no contractures, malalignment, tenderness, or bony abnormalities and normal movement of all extremities. Extremities: no cyanosis, edema, varicosities, or palpable cord. Skin:Inspection and palpation: no rash, lesions, ulcer, induration, nodules, jaundice, or abnormal nevi and good turgor. Nails: normal. Back:Thoracolumbar Appearance: normal curvature. Assessment and Plan1.Encounter for screening for malignant neoplasm of vdersY94.11: Encounter for screening for malignant neoplasm of colon Golytely 236 gram-22.74 gram-6.74 gram-5.86 gram oral solution - DIRECTED Qty: (1) mL Refills: 0 Pharmacy: [id number] COLONOSCOPY SCREENING (PROC) Patient InstructionsGOLYTELYDiscussion NotesPT NEEDS A SCREENING COLON . R/O POLYP . RECOMMEND A COLONOSOPY RISKS BENEFITS AND COMPLICATIONS WERE EXPLAINED TO PT . ( BLEEDING , PERFORATION , INFECTION , ) PT VERBALIZES UNDERSTANDING AND IS WILLING TO PROCEDE . Return to Office Jose Juan Zepeda MD for Any 15 at [facility] on 03/24/2025 at 08:15 AM ANTHONY Byrnes for Any 30 at [facility] on 03/31/2025 at 08:30 AM to see Jose Juan Zepeda MD for Physical/Annual Wellness 30 at [facility] on or around 05/13/2025 Patient Medical History: Allergies List Reviewed Allergies ERYTHROMYCIN BASE: - yeast infections LATEX TETRACYCLINE: - yeast infections Some allergies listed in Document: #[id number] could not be added to this patient's chart. Please review this document and add these allergies to the patient's chart manually as needed. Medications Reviewed Medications NameDate Source ALPRAZolam 0.5 mg tabletTAKE 1 TABLET BY MOUTH THE NIGHT BEFORE APPOINTMENT THEN 1 TABLET 1 HOUR BEFORE PEJUGDOAKWY00/08/25 filled surescripts atorvastatin 10 mg tabletTake 1 tablet(s) every day by oral route at bedtime for 90 days.02/23/25 prescribed Jose Juan Zepeda MD busPIRone 10 mg tabletTAKE 1 TABLET BY MOUTH TWICE DAILY UHHJGC27/27/25 filled surescripts ergocalciferol (vitamin D2) 1,250 mcg (50,000 unit) capsuleTAKE 1 CAPSULE BY MOUTH EVERY WEEK KWTYYQBP98/27/25 filled surescripts escitalopram 10 mg tabletTAKE 1 TABLET BY MOUTH EVERY DAY IN THE BUNXHVU66/27/25 filled surescripts pt says she is not taking any medication Family HistoryReviewed Family History Mother - Hypertensive disorder - Neoplasm of ovary - Disorder of thyroid gland Unspecified Relation - Diabetes mellitus - Paget's disease-multiple sites Sister - Malignant neoplasm of breast Past Medical History BRONCHITISY HAVE YOU BEEN HOSPITALIZED OR SEEN IN THE ER IN THE PAST YEAR ?Y, Flu HIGH CHOLESTEROL / HYPERLIPIDEMIAY Vaccine HistoryReviewed Vaccines Vaccine Type Date Amt. Route Site [facility] Lot # Mfr. Exp. 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 Tdap 12/30/2020 11/09/22 Elizabeth Araujo RN Tdap 04/05/16 0.5 mL Intramuscular Deltoid, Left [id number] Sanofi Pasteur 06/14/17 04/05/16 [email or web address] Influenza Influenza vaccine, quadrivalent, adjuvanted 03/04/23 influenza, injectable, quadrivalent 06/02/18 [facility] influenza, injectable, quadrivalent, preservative free 04/05/16 0.5 mL Intramuscular Deltoid, Right [id number] Sanofi Pasteur 11/23/16 04/05/16 [email or web address] influenza, seasonal, injectable 03/18/14 Respiratory Syncytial Virus RSV, recombinant, protein subunit RSVpreF, adjuvant reconstituted, 0.5 mL, PF 03/04/23 updated Electronically Signed by: STEFFANY BURCIAGA MD Jose Juan Zepeda MD [address] [place] [address], [id number], [facility] [employer] 03/03/2025 11:48:07 Procedures Surgical History Date Name Laterality Status Provider Name and Address Organization Details Recorded Time 013 Knee arthroscopy/surgery completed Not Available [facility] 07/25/2022 06:40:52 013 Gastrointestinal Surgery completed Not Available [facility] 07/25/2022 06:40:52 012 colonoscopy completed Not Available [facility] 07/25/2022 06:40:52 983 Orthopedic Surgery completed Not Available [facility] 07/25/2022 06:40:52 Imaging Results None recorded. Procedure Notes None recorded. Medical Equipment None Reported. Allergies Allergen ID Allergen Name Allergen Category Reaction Reaction Severity Criticality Documentation Date Start Date Code Code System Note Provider Name and Address Organization Details Recorded Time 21442 tetracycl ine medicatio n Not available Not available Not available 07/25/2022 45903 RxNorm yeast infec tions Not Available [facility] 3 06:49:02 50073 latex environme nt,medica tion Not available Not available Not available 07/25/2022 11962 91 RxNorm Not Available [facility] 3 06:49:02 73662 erythromy rainer medicatio n Not available Not available Not available 07/25/2022 4053 RxNorm yeast infec tions Not Available [facility] 3 06:49:02 Medications Name Sig Start Date [...] propionate 50 mcg/actuat ion nasal spray,susp ension [place] 1 spray every day by intranasa l [...] Available Not Available Not Available Fluarix Quad [id number] (PF) 60 mcg (15 mcg x 4)/0.5 mL IM syringe INJECT 0.5 ML INTRAMUSC ULARLY DIRECTED. active Not Available Not Available No t Available Flucelvax Quad 60 mcg (15 mcg x 4)/0.5 mL IM suspension active Not Available Not Available N ot Available Vitals Date Recorded Body height Body mass index (BMI) Body weight Heart rate Oxygen saturation Systolic And Diastolic Provider Name and Address Organization Details Last Updated DateTime 5 166.37 cm 37.5 kg/m2 538352. 65 g 65 /min 97 % 132/74 mm[Hg] RANDALL Blevins [place] [facility] [place] [employer] [facility] 5 10:48:33 Social History Question Answer Notes LastModified by [employer] Details LastModified Time Tobacco Smoking Status Never Smoker Not Available [employer] 07/25/2022 06:40:34 What Is Your Level Of Caffeine Consumption? Heavy [id number] Information not available 07/25/2022 How Much Tobacco Do You Chew? None MIGRATION.[id number] 026 Information not available 07/25/2022 In The 14 Days Before Symptom Onset, Have You Had Close Contact With A Laboratory-confirm ed COVID-19 While That Case Was Ill? No [id number].[id number] 026 Information not available 07/25/2022 In The 14 Days Before Symptom Onset, Have You Had Close Contact With A Person Who Is Under Investigation For COVID-19 While That Person Was Ill? No [id number].[id number] 026 Information not available 07/25/2022 What Type Of Diet Are You Following? REGULAR MIGRATION.[id number] 026 Information not available 07/25/2022 Which Illicit Or Recreational Drugs Have You Used? NONE MIGRATION.[id number] 026 Information not available 07/25/2022 At What Age Did You Start Smoking Tobacco? 22 MIGRATION.[id number] 026 Information not available 07/25/2022 Sex: Unknown Functional Status Question Answer Note LastModified by Organ[employer] Details LastModified Time What is your level of alcohol consumption? 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 Never used electronic cigarettes MIGRATION.[id number] 026 Information not available 07/25/2022 Mental Status None recorded. Family History Relationship Description Onset Age of this Age Resolved Age Notes LastModified by Organization Details LastModified Time Mother Hypertensive disorder [id number].162 [id number] Not available 07/25/2022 06:40:52 Mother Neoplasm of ovary MIGRATION.844 [id number] Not available 07/25/2022 06:40:52 Mother Disorder of thyroid gland MIGRATION.299 [id number] Not available 07/25/2022 06:40:52 Unspecified Relation Diabetes mellitus MIGRATION.029 [id number] Not available 07/25/2022 06:40:52 Unspecified Relation Paget's disease-mult iple sites MIGRATION.492 [id number] Not available 07/25/2022 06:40:52 Sister Malignant neoplasm of breast [id number] Not available 07/25/2022 06:40:52 Medical History Condition Response HIGH CHOLESTEROL / HYPERLIPIDEMIA Y HAVE YOU BEEN HOSPITALIZED OR SEEN IN [facility] IN THE PAST YEAR ? Y BRONCHITIS Y Gynecological History Statement/Question Response Date of Last Mammogram 10/18/2020 Obstetrics History GPAL:G 0 P 0 0 0 0 Immunizations Vaccine Type Date Status Note Provider Nam e and Address Organization Details Recorded Time RSV, recombinant, protein subunit RSVpreF, adjuvant reconstituted, 0.5 mL, PF 3 completed Elizabeth Araujo RN null, [facility] 05/02/2023 17:51:58 COVID-19, mRNA, LNP-S, PF, philip-sucrose, 30 mcg/0.3 mL 3 completed Elizabeth Araujo RN null, [facility] 05/02/2023 17:52:24 Influenza, adjuvanted, quadrivalent, PF 3 completed Elizabeth Araujo RN null, [facility] 05/02/2023 17:53:23 COVID-19, mRNA, LNP-S, PF, 30 mcg/0.3 mL dose 2 completed Not Available [facility] 07/25/2022 06:48:46 Influenza, split virus, quadrivalent, preservative 9 completed Not Available [facility] 07/25/2022 06:48:46 SARS-COV-2 (COVID-19) vaccine, UNSPECIFIED 1 completed Not Available [facility] 07/25/2022 06:48:47 SARS-COV-2 (COVID-19) vaccine, UNSPECIFIED 1 completed Not Available [facility] 07/25/2022 06:48:47 Influenza, split virus, trivalent, preservative 4 completed Not Available [facility] 07/25/2022 06:48:47 Td (adult) 4 completed Not Available [facility] 07/25/2022 06:48:47 Influenza, split virus, quadrivalent, PF 6 completed Not Available [facility] 07/25/2022 06:48:47 Tdap 6 completed Not Available [facility] 07/25/2022 06:48:47 Tdap 3 completed Elizabeth Araujo RN [facility] [employer] [facility] 11/09/2022 16:07:14 Past Encounters Encounter ID Performer Location Encounter Start Date Encounter Closed Date Diagnosis/Indication Diagnosis SNOMED-CT Code Diagnosis ICD10 Code Diagnosis IMO Codes Diagnosis Note [id number] Jose Juan Zepeda MD [facility] [address] 02/23/2025 08:43:24 02/23/2025 09:20:48 Complication due to vaccination 57047368 T88.1XXA [id number] Pt declined for any Rx med. OTC symptomati c treatment and good liquid intake explained in detail. Fatigue 40664755 R53.83 [id number] Nasal congestion 9700079 0 R09.81 88339 Leukopenia 79182181 D72. 819 [id number] Pt declined for Hemat referral. Hyperlipidemia 67262277 E78.5 [id number] Steffany Burciaga MD [facility] General Surgery [address] [facility], [facility] [address] [place] [address] 03/03/2025 10:42:51 03/03/2025 11:01:39 Screening for malignant neoplasm of colon 574783113 Z12.11 [id number] Health Concerns Section Related Observation LastModified by Organization Detai ls LastModified Time None Recorded Concern Status LastModified by Organization Details LastModified Time None Recorded Payers Encounter Date Sequence Insurance Name Policy Number Policy Blackwell Covered Member ID Blackwell Member ID Guarantor Name 03/03/2025 1 [employer] [id number] Estefani Hunt [id number] Estefani Hunt Notes Date Note Type Note Provider Name and Address Organization Details Recorded Time 03/03/2025 text/html ROS as noted in the HPI PT WAS SEEN IN THE OFFICE TODAY FOR COLON SCREENING . PT DENIES ABD PAIN /N/V/D/BLEEDING /WT LOSS Steffany Burciaga MD [address] [facility] [address], [place], [address], [facility] [employer] 03/03/2025 11:19:05 OBGyn Episode No OBEpisode recorded.
[2025-05-17 22:37] VITALS: BP 139/69; PULSE 64; RESP 14; TEMP 36.8; O2SAT 100
[2025-05-18 00:21] VITALS: BP 131/74; PULSE 68; RESP 14; TEMP 36.9; O2SAT 99
--- NOTE | 2025-05-18 03:40 | ED.GENADULT ---
HPI - General Adult General Chief complaint: Extremity Injury, Lower Stated complaint: broken R middle toe Time Seen by Provider: 05/17/25 23:40 History of Present Illness HPI narrative: 64-year-old female presenting with right 3rd toe injury after stubbing it tonight. States she is still able to walk and that her pain is mild. Reports no other injuries or concerns. Related Data Allergies Allergy/AdvReac Type Severity Reaction Status Date / Time erythromycin base Allergy Severe YEAST Verified 05/17/25 22:24 INFECTION latex Allergy Severe SWELLING, Verified 05/17/25 22:24 REDDNESS tetracycline Allergy Severe YEAST Verified 05/17/25 22:24 INFECTION Review of Systems Review of Systems: All systems reviewed & are unremarkable except as noted in HPI and below PMFSH Past Medical History Medical History (Updated 05/18/25 @ 00:00 by Elliot Diaz) Depression Surgical History Surgical History (Updated 12/26/20 @ 19:34 by Levi Katz MD) History of colonoscopy Social History Social History (Updated 12/26/20 @ 19:34 by Levi Katz MD) Smoking status: Never smoker Gender identity (if verbalized by the patient): Female Exam Narrative: GENERAL: Well-appearing, well-nourished, and in no acute distress. HEAD: Normocephalic, atraumatic. EYES: PERRLA and EOMI. ENT: Nares clear, no rhinorrhea or epistaxis. Mucous membranes moist. Oropharynx without tonsillar hypertrophy exudate or other lesions. Bilateral TMs pearly guallpa non-bulging NECK: Supple. No adenopathy or masses. No carotid bruits or JVD CHEST: Clear to auscultation. No respiratory distress. No wheezes rales or rhonchi HEART: Regular rate and rhythm. No murmur heard. Normal peripheral pulses. ABDOMEN: Soft, nontender, nondistended, normal active bowel sounds. EXTREMITIES: Normal range of motion. No edema. Right third toe without bruising or swelling. Lateral deviation. Maintains good ROM and good capillary refill. SKIN: Warm, dry, no rash. NEURO: No focal deficits. Alert and oriented x3. PSYCH: Normal mood and affect Course Vital Signs Vital signs: Vital Signs Temperature 98.2 F 05/17/25 22:37 Pulse Rate 64 05/17/25 22:37 Respiratory Rate 14 05/17/25 22:37 Blood Pressure 139/69 05/17/25 22:37 Pulse Oximetry 100 05/17/25 22:37 Oxygen Delivery Room Air 05/17/25 22:37 Temperature 98.5 F 05/18/25 00:21 Pulse Rate 68 05/18/25 00:21 Respiratory Rate 14 05/18/25 00:21 Blood Pressure 131/74 05/18/25 00:21 Pulse Oximetry 99 05/18/25 00:21 Oxygen Delivery Room Air 05/18/25 00:21 MDM MDM Narrative Medical decision making narrative: 64-year-old female presenting with right 3rd toe injury after stubbing it tonight. States she is still able to walk and that her pain is mild. Reports no other injuries or concerns. X-ray demonstrates a mildly displaced extra-articular fracture right third proximal phalanx. Patient's toe was stevo taped to the adjacent toe for support and provided with a surgical post-op shoe. Advised close follow-up outpatient with orthopedics. Patient declined any medication for pain and crutches. Treatment plan discussed with the patient. Patient agrees with discussion and after shared medical decision making agrees with plan of care. All questions were answered to the patient's satisfaction. The patient is appropriate for outpatient treatment and follow-up. Given reasons to return. Differential Diagnosis Differential Diagnosis: Differential diagnostic considerations for lower extremity injury include ankle sprain/strain, acute internal derangement of knee, fracture of femur, fracture of hip, puncture wound of foot, fracture of toe, fracture of ankle, tendon rupture (achilles/patellar/quadriceps). Medical Records I have reviewed the following patient records and this information was taken into consideration when formulating the assessment and plan.: previous labs and previous ER visits Imaging Data Attestation: I personally reviewed and interpreted this imaging study as follows: Radiologist's impression: ITS Impressions Toe X-Ray 05/17/25 23:23 Impression: 1: Mildly displaced extra-articular fracture right third proximal phalanx. Discharge Plan Discharge Clinical Impression: Fracture of toe Patient Disposition: Home Condition: Stable Instructions: Antibiotic Form Additional Instructions: Return to the ER if you experience fever, redness and swelling of your extremity, numbness or any other symptoms that are concerning to you Keep toe taped and wear the post-op shoe until directed otherwise. Weight-bearing as tolerated. Ice and elevate extremity. Take anti-inflammatories (Aleve, Ibuprofen, Naproxen, etc) and Tylenol as needed for pain. Follow up with orthopedics. Follow-up with your primary care doctor for other generalized concerns. Patient Language: [place] Citizen Prescriptions: No Action naproxen 375 mg tablet 375 mg PO BID Qty: 14 0RF Follow-up/Referrals: Duane,MD Jose Juan [Primary Care Provider, Unknown] Greg Shaw MD [Physician, Orthopedics]
== END 2025-05-18 00:24 | disposition home or self-care (01) ==
LOC: ANHED 05-18 01:02
PROVIDERS: PCP Family Medicine
DX: S92.511A Displaced fracture of proximal phalanx of right lesser toe(s), initial encounter for closed fracture (principal); W22.8XXA Striking against or struck by other objects, initial encounter
CPT/HCPCS: 73660; 99284